=== PATIENT | female | born 1955 | race Caucasian/White ===

== ENCOUNTER 2016-07-18 19:32 | Emergency (ER) | payer BC ==
[~2016-07-18 19:32] MED LIST: ASPIRIN PO; CALCIUM 500 + D1 TAB PO; CHOLESTEROL MED PO; FISH OIL 1,0001 CAP PO; FISH OIL500 MG PO; INDERAL LA PO; MULTI VITAMIN1 EACH PO; MULTIVITAMIN W-1 TAB PO; PROAIR HFA8.5 GM INH; PROAIR INHALER; PROPRANOLOL PO; ST. JOSEPH ASPI81 M2 PO; SYNTHROID PO
== END 2016-07-18 19:49 | disposition home or self-care (01) ==
LOC: SED 19:32
DX: M54.41 Lumbago with sciatica, right side (principal); J45.909 Unspecified asthma, uncomplicated
CPT/HCPCS: 99283

== ENCOUNTER → 2016-07-27 | Outpatient (CLI) | payer BC ==
--- NOTE | ~2016-07-27 | MR113 ---
[facility]. [facility] A Service of [facility] RADIOLOGY TEXT RESULTS PATIENT: BENITO PRESTON [facility] UNIT #: [id number] AGE: [address]: Nini Norris APRN SEX: F ORDER DR: [id number] [facility] [address]. [place], [place] [address] [id number] O MR#: [id number] Acc #: [id number] NAME: BENITO PRESTON. : 1955 SEX: F STUDY DATE/TIME: 07/27/2016 9:25 UNIT: [facility] ROOM: STUDY DESCRIPTION: MR Lumbar Wo Contrast Attending Physician: Nini Norris A.P.R.N. Referring Physician: Nini oNrris A.P.R.N. Ordering Physician: Nini Norris A.P.R.N. Primary Care Physician: Pily Jurado M.D. MRI CENTER REPORT This report is preliminary unless electronic signature is present. EXAM Lumbar spine MRI, no contrast. DATE OF STUDY 07/27/2016 PROCEDURE Routine lumbar spine MRI without contrast. COMPARISON None. CLINICAL HISTORY Low back pain since July 24. Pain was sudden onset with movement and radiates to right side. FINDINGS There is a mild dextroscoliosis. There is a grade 1 4-5 anterolisthesis without pars defect. Bone marrow signal is normal. The distal cord and conus are normal in position and appearance. The paraspinous soft tissues are normal. At 1-2, the disc canal and foramina are normal. At 2-3, there is a slight disc bulge but no canal stenosis and borderline left and no right foraminal stenosis. At 3-4, there is a slight disc bulge but no canal stenosis and borderline to mild bilateral foraminal narrowing. At 4-5, there is grade 1 anterolisthesis, disc and endplate change and facet arthropathy and moderate canal stenosis, and [id number] or STS. [facility] A Service of [facility] RADIOLOGY TEXT RESULTS PATIENT: BENITO PRESTON [facility] 51 UNIT #: [id number] AGE: [address]: Nini Norris APRN SEX: F ORDER DR: moderate right, and [id number] left foraminal distortion and narrowing. At 5-1, there is no canal stenosis, but there is mild left and borderline right foraminal stenosis. IMPRESSION Degenerative changes. Overall most prominent is a degenerative grade 1 4-5 anterolisthesis with canal and foraminal compromise. See above for myrru-ro-[id number] details. No acute appearing abnormality at any level. Dictated by... Dickson Garcia M.D. THIS IS AN ELECTRONICALLY VERIFIED REPORT Dickson Garcia M.D. at 07/28/2016 12:46 PM JOHN/chance TD: 07/27/2016 16:03 JOB #: [id number] MRI [facility]ENTER REPORT COPY
== END | disposition home or self-care (01) ==
LOC: CMRI 08:07
DX: M54.16 Radiculopathy, lumbar region (principal); M47.816 Spondylosis without myelopathy or radiculopathy, lumbar region; M43.16 Spondylolisthesis, lumbar region
CPT/HCPCS: 72148